=== PATIENT | female | born 1955 | race African-American/Black ===

== ENCOUNTER 2018-10-04 14:30 | Inpatient (IN) ==
[2018-10-04] MEDS ORDERED: SUFentanil 250 MCG/5 ML AMP ONE (15:07)
[2018-10-04] MEDS ORDERED: VANCOMYCIN 1,000 MG VIAL ONE ×2 (15:09→16:51)
[2018-10-04] MEDS ORDERED: PAPAVERINE 60 MG/2 ML VIAL ONE (15:09)
[2018-10-04] MEDS ORDERED: INSULIN REGULAR 100 UNIT/ML IV PRN (15:11)
[2018-10-04] MEDS ORDERED: MAGNESIUM SULF RIDER 4 GM in PREMIX 1 EACH IV PRN (15:11)
[2018-10-04] MEDS ORDERED: DEXTROSE 50% 25 GM/50 ML SYRINGE IV PRN ×2 (15:11)
[2018-10-04] MEDS ORDERED: MIDAZOLAM 2 MG/2 ML VIAL IV PRN (15:11)
[2018-10-04] MEDS ORDERED: CALCIUM CHLORIDE 1,000 MG/10 ML SYRINGE IV PRN (15:11)
[2018-10-04] MEDS ORDERED: ACETAMINOPHEN 650 MG SUPP RECTAL PRN (15:11)
[2018-10-04] MEDS ORDERED: CHLORHEXIDINE 4% SOLN 118 ML BOTTLE TOP PRN (15:11)
[2018-10-04] MEDS ORDERED: ONDANSETRON 4 MG/2 ML VIAL IV PRN (15:11)
[2018-10-04] MEDS ORDERED: INSULIN REGULAR DRIP 100 ML IV SCH (15:30)
[2018-10-04 16:47] LABS: ABG Base Excess -1.3 MMOL/L (-2.5-2.5); ABG HCO3 23.3 MMOL/L (20-26); ABG Oxygen Saturation 99.8 % (95-100); ABG PCO2 37.8 MM HG (35-48); ABG PH 7.396 (7.35-7.45); ABG TCO2 20.8 MMOL/L (23-27); Glucose Heart Surgery 100 MG/DL (74-106); Hematocrit Heart Surgery 34.2 PERCENT (37-47); Hemoglobin Heart Surgery 11.1 G/DL (12.0-16.0); Potassium Heart/CVR 3.9 MMOL/L (3.5-5.1)
[2018-10-04] MEDS ORDERED: TISSUE ADHESIVE 1 EACH APPLICATOR TOP ONE (16:51)
[2018-10-04 17:51] LABS: Apearance,Urine CLEAR (Clear); Bilirubin,Urine Negative (Negative); Blood, Urine Negative (Negative); Glucose,Urine (UA) Negative (Negative); Ketones,Urine 20 mg/dL (Negative); Nitrite,Urine Negative (Negative); Protein,Urine Negative; RBC,Urine 1 /HPF (0-4); Urine Color Yellow (Yellow); Urine Specific Gravity 1.032 (1.001-1.035); WBC,Urine <1 /HPF (0-6)
[2018-10-04 18:10] LABS: Hematocrit Heart Surgery 19.9 PERCENT (37-47); VBG Base Excess 3.1 MEQ/L (0-4); VBG HCO3 27.3 MEQ/L (24-28); VBG PCO2 13.8 MMHG (41-51); VBG PH 7.799
[2018-10-04] MEDS ORDERED: PHENobarbital 130 MG/1 ML VIAL ONE ×2 (18:10→18:26)
[2018-10-04 18:14] LABS: PCO2 Patient Temp Venous 13.8 MM HG; PH Patient Temp Venous 7.799
[2018-10-04 18:16] LABS: Hemoglobin Heart Surgery 6.3 G/DL (12.0-16.0); Potassium Heart/CVR 6.1 MMOL/L (3.5-5.1)
[2018-10-04 19:07] LABS: PCO2 Patient Temp Venous 53.7 MM HG; PH Patient Temp Venous 7.364; PO2 Patient Temp Venous 57.3 MM HG; Potassium Heart/CVR 5.8 MMOL/L (3.5-5.1); VBG Base Excess 4.7 MEQ/L (0-4); VBG HCO3 28.6 MEQ/L (24-28); VBG Oxygen Saturation 88.5 %; VBG PCO2 53.7 MMHG (41-51); VBG PH 7.364; VBG PO2 57.3 MMHG (17-40)
[2018-10-04 19:10] LABS: Hemoglobin Heart Surgery 5.2 G/DL (12.0-16.0)
[2018-10-04 19:11] LABS: Hematocrit Heart Surgery 16.3 PERCENT (37-47)
[2018-10-04 19:41] LABS: Hematocrit Heart Surgery 23.7 PERCENT (37-47); Hemoglobin Heart Surgery 7.6 G/DL (12.0-16.0); PCO2 Patient Temp Venous 36.8 MM HG; PH Patient Temp Venous 7.501; PO2 Patient Temp Venous 44.9 MM HG; VBG Base Excess 5.3 MEQ/L (0-4); VBG HCO3 29.1 MEQ/L (24-28); VBG Oxygen Saturation 85.8 %; VBG PCO2 36.8 MMHG (41-51); VBG PH 7.501; VBG PO2 44.9 MMHG (17-40)
[2018-10-04 19:43] LABS: Potassium Heart/CVR 6.2 MMOL/L (3.5-5.1)
[2018-10-04 20:12] LABS: Hematocrit Heart Surgery 25.4 PERCENT (37-47); Hemoglobin Heart Surgery 8.1 G/DL (12.0-16.0); PCO2 Patient Temp Venous 36.4 MM HG; PH Patient Temp Venous 7.521; PO2 Patient Temp Venous 40.1 MM HG; VBG Base Excess 6.6 MEQ/L (0-4); VBG HCO3 30.2 MEQ/L (24-28); VBG Oxygen Saturation 82.4 %; VBG PCO2 36.4 MMHG (41-51); VBG PH 7.521; VBG PO2 40.1 MMHG (17-40)
[2018-10-04 20:14] LABS: Potassium Heart/CVR 6.5 MMOL/L (3.5-5.1)
[2018-10-04] MEDS ORDERED: THROMBIN TOPICAL (RECOMBINANT) 5,000 UNIT VIAL TOP ONE (20:32)
[2018-10-04 20:57] LABS: ABG Base Excess 3.9 MMOL/L (-2.5-2.5); ABG Oxygen Saturation 98.7 % (95-100); ABG PCO2 33.4 MM HG (35-48); ABG PH 7.513 (7.35-7.45); ABG TCO2 24.7 MMOL/L (23-27); Glucose Heart Surgery 177 MG/DL (74-106); Hematocrit Heart Surgery 26.8 PERCENT (37-47); Hemoglobin Heart Surgery 8.6 G/DL (12.0-16.0); Ionized Calcium Arterial 1.05 MMOL/L (1.21-1.46); PCO2 Patient Temp Arterial 33.4 MMHG; PH Patient Temp Arterial 7.513; Patient Temperature 37 CELCIUS; Sodium Heart/CVR 140 MMOL/L (135-145)
[2018-10-04 20:59] LABS: Potassium Heart/CVR 6.3 MMOL/L (3.5-5.1)
[2018-10-04] MEDS ORDERED: SODIUM BICARBONATE 50 MEQ/50 ML VIAL IV ONE (21:17)
[2018-10-04] MEDS ORDERED: MANNITOL 100 GM/500 ML BAG IV ONE (21:17)
[2018-10-04] MEDS ORDERED: DEXTROSE 5% KCL 20 MEQ 20 MEQ/1,000 ML BAG IV ONE (21:17)
[2018-10-04] MEDS ORDERED: HEPARIN 10,000 UNIT/10 ML VIAL ONE (21:18)
[2018-10-04] MEDS ORDERED: MAGNESIUM SULFATE 10 GM/20 ML VIAL IV ONE (21:18)
[2018-10-04] MEDS ORDERED: FUROSEMIDE 20 MG/2 ML VIAL ONE (21:18)
[2018-10-04] MEDS ORDERED: POTASSIUM CHLORIDE 20 MEQ/10 ML VIAL ONE (21:18)
[2018-10-04] MEDS ORDERED: ALBUMIN 25% 25 GM/100 ML VIAL IV ONE (21:18)
[2018-10-04] MEDS ORDERED: PROTAMINE SULFATE 250 MG/25 ML VIAL IV ONE (21:18)
[2018-10-04] MEDS ORDERED: methylPREDNISolone SOD SUC 1,000 MG/8 ML VIAL ONE (21:18)
[2018-10-04] MEDS ORDERED: PHENYLEPHRINE DRIP 40 MG/250 ML PREMIX IV ONE (21:33)
[2018-10-04] MEDS ORDERED: SEVOFLURANE 1 UNIT/15 MINUTE INH ONE (22:09)
[2018-10-04] MEDS ORDERED: CALCIUM CHLORIDE 1,000 MG/10 ML VIAL IV ONE (22:10)
[2018-10-04] MEDS ORDERED: VECURONIUM 10 MG VIAL IV ONE (22:11)
[2018-10-04] MEDS ORDERED: ETOMIDATE 40 MG/20 ML VIAL IV ONE (22:11)
[2018-10-04] MEDS ORDERED: PHENYLEPHRINE 1 MG/10 ML SYRINGE IV ONE (22:11)
[2018-10-04] MEDS ORDERED: MIDAZOLAM 10 MG/2 ML VIAL ONE ×2 (22:11)
[2018-10-04] MEDS ORDERED: PHENYLEPHRINE 10 MG/1 ML VIAL IV ONE (22:11)
[2018-10-04] MEDS ORDERED: NITROGLYCERIN DRIP 50 MG/250 ML BOTTLE IV ONE (22:12)
[2018-10-04] MEDS ORDERED: LACTATED RINGERS 1,000 ML IV ONE (22:12)
[2018-10-04] MEDS ORDERED: SUCCINYLCHOLINE 200 MG/10 ML VIAL ONE (22:12)
[2018-10-04] MEDS ORDERED: PHENYLEPHRINE DRIP 40 MG/250 ML PREMIX IV PRN (22:21)
[2018-10-04 22:22] LABS: Basophils % 0.2 % (0.0-0.8); Eosinophils # 0.2 10*3/uL (0.0-0.87); Eosinophils % 1.2 % (0.00-10.9); Hematocrit 24.6 VOL% (35.7-47.0); Immature Granulocytes Absolute 0.13 #; Lymphocytes % 8.1 % (21.3-54.2); Mean Corpuscular HGB Conc 32.5 GM/DL (32-36); Mean Corpuscular Hemoglobin 29 PG (27-34); Mean Corpuscular Volume 88.8 FL (87-102); Mean Platelet Volume 10.2 FL (9.6-12.0); Monocytes % 7.5 % (1.7-12.7); Neutrophils # 10.5 10*3/uL (1.4-7.4); Platelet Count 171 T/CUMM (130-400); Red Blood Count 2.77 MC/CUMM (3.8-5.5); Red Cell Distribution Width 14.3 % (9.3-17.3); White Blood Count 12.8 T/CUMM (4-12)
[2018-10-04 22:24] LABS: ABG Base Excess 4.5 MMOL/L (-2.5-2.5); ABG HCO3 28.5 MMOL/L (20-26); ABG Oxygen Saturation 99.7 % (95-100); ABG PCO2 34.3 MM HG (35-48); ABG PH 7.513 (7.35-7.45); ABG TCO2 25.4 MMOL/L (23-27); Glucose Heart Surgery 185 MG/DL (74-106); Hematocrit Heart Surgery 26.3 PERCENT (37-47); Hemoglobin Heart Surgery 8.5 G/DL (12.0-16.0); Potassium Heart/CVR 5.4 MMOL/L (3.5-5.1)
[2018-10-04 22:43] LABS: INR 1.1; PT Patient Result 11.8 SECS; Partial Thromboplastin Time 24.9 SECS (0-40)
[2018-10-04 22:51] LABS: Calcium 8.8 MG/DL (8.5-10.1); Osmolality,Calculated 289.7 MOS/KG (273-304); Potassium 5.5 MMOL/L (3.5-5.1)
[2018-10-04] MEDS: SODIUM CHLORIDE 0.45% 1,000 ML IV SCH ×2 (22:55)
[2018-10-04] MEDS: NITROGLYCERIN DRIP 50 MG/250 ML BOTTLE IV PRN (22:56)
[2018-10-04] MEDS: CHLORHEXIDINE 0.12% ORAL RINSE 60 ML BOTTLE SWISH/SPIT SCH (23:27)
[2018-10-04] MEDS: SODIUM CHLORIDE 0.9% 250 ML IV PRN (23:36)
[2018-10-05] MEDS: SODIUM CHLORIDE 0.9% 250 ML IV PRN (01:35)
[2018-10-05 02:28] LABS: ABG Base Excess 0.4 MMOL/L (-2.5-2.5); ABG HCO3 24.8 MMOL/L (20-26); ABG PCO2 40.2 MM HG (35-48); ABG PH 7.404 (7.35-7.45); ABG TCO2 22.9 MMOL/L (23-27); Glucose Heart Surgery 212 MG/DL (74-106); Hemoglobin Heart Surgery 9.7 G/DL (12.0-16.0); Potassium Heart/CVR 4.5 MMOL/L (3.5-5.1)
[2018-10-05] MEDS: VANCOMYCIN INJ 1,000 MG in SODIUM CHLORIDE 0.9% 250 ML IV SCH ×2 (02:45→14:34)
[2018-10-05 04:07] LABS: Basophils % 0.1 % (0.0-0.8); Eosinophils % 0.1 % (0.00-10.9); Hematocrit 28.1 VOL% (35.7-47.0); Hemoglobin 9.1 GM/DL (12.0-16.0); Immature Granulocytes % 1.4 %; Immature Granulocytes Absolute 0.19 #; Lymphocytes # 0.7 10*3/uL (1.4-4.0); Mean Corpuscular HGB Conc 32.4 GM/DL (32-36); Mean Corpuscular Hemoglobin 28 PG (27-34); Mean Corpuscular Volume 86.5 FL (87-102); Monocytes # 0.8 10*3/uL (0.11-0.8); Neutrophils # 11.7 10*3/uL (1.4-7.4); Neutrophils % 87.4 % (38.7-73.9); Platelet Count 157 T/CUMM (130-400); Red Blood Count 3.25 MC/CUMM (3.8-5.5); Red Cell Distribution Width 15.4 % (9.3-17.3); White Blood Count 13.3 T/CUMM (4-12)
[2018-10-05 04:41] LABS: Calcium 7.9 MG/DL (8.5-10.1); Osmolality,Calculated 297.1 MOS/KG (273-304); Potassium 4.9 MMOL/L (3.5-5.1)
[2018-10-05] MEDS: ALBUMIN 5% 12.5 GM in PREMIX 1 EACH IV PRN ×2 (05:32→05:49)
[2018-10-05] MEDS: SODIUM CHLORIDE 0.45% 1,000 ML IV SCH ×5 (05:59→22:09)
[2018-10-05] MEDS: PANTOPRAZOLE 40 MG VIAL IV SCH (08:12)
[2018-10-05] MEDS: CHLORHEXIDINE 0.12% ORAL RINSE 60 ML BOTTLE SWISH/SPIT SCH ×2 (08:16→22:12)
[2018-10-05] MEDS: POTASSIUM CHLORIDE RIDER 10 MEQ in PREMIX 1 EACH IV PRN ×2 (10:58→23:07)
[2018-10-05] MEDS: MAGNESIUM SULF RIDER 2 GM in PREMIX 1 EACH IV PRN (11:15)
[2018-10-05] MEDS: INSULIN REGULAR 100 UNIT/ML SUBCUT SCH ×3 (11:49→20:08)
[2018-10-05 13:14] LABS: ABG Base Excess -0.1 MMOL/L (-2.5-2.5); ABG HCO3 24.3 MMOL/L (20-26); ABG Oxygen Saturation 95.9 % (95-100); ABG PCO2 37.1 MM HG (35-48); ABG PH 7.422 (7.35-7.45); ABG TCO2 22.4 MMOL/L (23-27); Glucose Heart Surgery 135 MG/DL (74-106); Hematocrit Heart Surgery 25.7 PERCENT (37-47); Hemoglobin Heart Surgery 8.3 G/DL (12.0-16.0); Potassium Heart/CVR 4.3 MMOL/L (3.5-5.1)
[2018-10-05] MEDS: FUROSEMIDE 40 MG TABLET PO SCH (14:38)
[2018-10-05] MEDS: ASPIRIN 325 MG TABLET PO SCH (14:38)
[2018-10-05] MEDS ORDERED: SODIUM CHLORIDE 0.9% 1,000 ML IV PRN (16:39)
[2018-10-05] MEDS ORDERED: PROPOFOL 1,000 MG/100 ML BOTTLE IV PRN (17:16)
[2018-10-05] MEDS ORDERED: FUROSEMIDE 40 MG/4 ML VIAL IV ONE (19:00)
[2018-10-05] MEDS: MORPHINE 4 MG/1 ML VIAL IV PRN (20:45)
[2018-10-05 21:44] LABS: ABG Base Excess 1.3 MMOL/L (-2.5-2.5); ABG HCO3 25.6 MMOL/L (20-26); ABG Oxygen Saturation 97.8 % (95-100); ABG PCO2 36.9 MM HG (35-48); ABG PH 7.443 (7.35-7.45); ABG PO2 94.7 MM HG (80-95); ABG TCO2 23.2 MMOL/L (23-27); Glucose Heart Surgery 139 MG/DL (74-106); Hematocrit Heart Surgery 28.2 PERCENT (37-47); Hemoglobin Heart Surgery 9.1 G/DL (12.0-16.0); Potassium Heart/CVR 3.7 MMOL/L (3.5-5.1)
[2018-10-05] MEDS: POTASSIUM CHLORIDE RIDER 20 MEQ in PREMIX 1 EACH IV PRN (22:07)
[2018-10-05] MEDS: ATORVASTATIN 40 MG TABLET PO SCH (22:16)
[2018-10-06] MEDS: MORPHINE 4 MG/1 ML VIAL IV PRN (00:35)
[2018-10-06] MEDS: INSULIN REGULAR 100 UNIT/ML SUBCUT SCH ×6 (00:37→20:16)
[2018-10-06] MEDS: SODIUM CHLORIDE 0.45% 1,000 ML IV SCH ×3 (03:24→07:34)
[2018-10-06] MEDS: VANCOMYCIN INJ 1,000 MG in SODIUM CHLORIDE 0.9% 250 ML IV SCH ×2 (03:38→14:26)
[2018-10-06] MEDS: NITROGLYCERIN DRIP 50 MG/250 ML BOTTLE IV PRN (03:53)
[2018-10-06 04:59] LABS: Basophils % 0.2 % (0.0-0.8); Hematocrit 24.1 VOL% (35.7-47.0); Hemoglobin 7.7 GM/DL (12.0-16.0); Immature Granulocytes % 1.2 %; Immature Granulocytes Absolute 0.21 #; Lymphocytes # 0.9 10*3/uL (1.4-4.0); Lymphocytes % 5.3 % (21.3-54.2); Mean Corpuscular Hemoglobin 28 PG (27-34); Mean Corpuscular Volume 87.6 FL (87-102); Mean Platelet Volume 10.5 FL (9.6-12.0); Monocytes # 1.9 10*3/uL (0.11-0.8); Monocytes % 10.5 % (1.7-12.7); NRBC # 0.02 10*3/uL; Neutrophils # 14.7 10*3/uL (1.4-7.4); Neutrophils % 82.8 % (38.7-73.9); Platelet Count 137 T/CUMM (130-400); Red Blood Count 2.75 MC/CUMM (3.8-5.5); Red Cell Distribution Width 16.5 % (9.3-17.3); White Blood Count 17.7 T/CUMM (4-12)
[2018-10-06 05:34] LABS: Calcium 7.8 MG/DL (8.5-10.1); Osmolality,Calculated 281.3 MOS/KG (273-304); Potassium 4.2 MMOL/L (3.5-5.1)
[2018-10-06] MEDS: POTASSIUM CHLORIDE RIDER 20 MEQ in PREMIX 1 EACH IV PRN (05:45)
[2018-10-06] MEDS: MAGNESIUM SULF RIDER 2 GM in PREMIX 1 EACH IV PRN (05:45)
[2018-10-06 06:09] LABS: ABG Base Excess 2.6 MMOL/L (-2.5-2.5); ABG HCO3 26.7 MMOL/L (20-26); ABG Oxygen Saturation 97.8 % (95-100); ABG PCO2 40.2 MM HG (35-48); ABG PH 7.434 (7.35-7.45); ABG TCO2 25.1 MMOL/L (23-27); Glucose Heart Surgery 153 MG/DL (74-106); Hematocrit Heart Surgery 25.1 PERCENT (37-47); Hemoglobin Heart Surgery 8.1 G/DL (12.0-16.0); Potassium Heart/CVR 4.7 MMOL/L (3.5-5.1)
[2018-10-06] MEDS ORDERED: METOPROLOL TARTRATE 5 MG/5 ML VIAL IV ONE (09:09)
[2018-10-06] MEDS: ASPIRIN 325 MG TABLET PO SCH (09:59)
[2018-10-06] MEDS: CHLORHEXIDINE 0.12% ORAL RINSE 60 ML BOTTLE SWISH/SPIT SCH ×2 (10:00→20:16)
[2018-10-06] MEDS: FUROSEMIDE 40 MG TABLET PO SCH (10:00)
[2018-10-06] MEDS: METOPROLOL TARTRATE 25 MG TABLET PO SCH ×2 (10:00→20:16)
[2018-10-06] MEDS: PANTOPRAZOLE 40 MG VIAL IV SCH (10:00)
[2018-10-06] MEDS: MORPHINE 10 MG/1 ML VIAL IV PRN ×2 (20:00→22:10)
[2018-10-06] MEDS: ATORVASTATIN 40 MG TABLET PO SCH (20:16)
[2018-10-07] MEDS: INSULIN REGULAR 100 UNIT/ML SUBCUT SCH ×6 (00:24→21:16)
[2018-10-07] MEDS: MORPHINE 10 MG/1 ML VIAL IV PRN (00:29)
[2018-10-07 05:38] LABS: Basophils % 0.1 % (0.0-0.8); Hematocrit 24.7 VOL% (35.7-47.0); Hemoglobin 8.1 GM/DL (12.0-16.0); Immature Granulocytes % 0.9 %; Immature Granulocytes Absolute 0.17 #; Lymphocytes # 1.5 10*3/uL (1.4-4.0); Lymphocytes % 7.5 % (21.3-54.2); Mean Corpuscular HGB Conc 32.8 GM/DL (32-36); Mean Corpuscular Hemoglobin 28 PG (27-34); Mean Corpuscular Volume 86.7 FL (87-102); Mean Platelet Volume 10.6 FL (9.6-12.0); Monocytes # 1.5 10*3/uL (0.11-0.8); Monocytes % 7.9 % (1.7-12.7); NRBC # 0.03 10*3/uL; Neutrophils # 16.2 10*3/uL (1.4-7.4); Neutrophils % 83.6 % (38.7-73.9); Platelet Count 188 T/CUMM (130-400); Red Blood Count 2.85 MC/CUMM (3.8-5.5); Red Cell Distribution Width 15.4 % (9.3-17.3); White Blood Count 19.4 T/CUMM (4-12)
[2018-10-07 05:48] LABS: Calcium 8.2 MG/DL (8.5-10.1); Potassium 4.4 MMOL/L (3.5-5.1)
[2018-10-07] MEDS: PANTOPRAZOLE 40 MG VIAL IV SCH (09:41)
[2018-10-07] MEDS: METOPROLOL TARTRATE 25 MG TABLET PO SCH ×2 (09:42→22:07)
[2018-10-07] MEDS: ASPIRIN 325 MG TABLET PO SCH (09:42)
[2018-10-07] MEDS: FUROSEMIDE 40 MG TABLET PO SCH (09:42)
[2018-10-07] MEDS: CHLORHEXIDINE 0.12% ORAL RINSE 60 ML BOTTLE SWISH/SPIT SCH ×2 (09:42→22:07)
[2018-10-07] MEDS ORDERED: SODIUM CHLORIDE 0.9% 1,000 ML IV PRN ×2 (10:42→11:30)
[2018-10-07 12:20] LABS: ABG Base Excess 3.5 MMOL/L (-2.5-2.5); ABG HCO3 26.6 MMOL/L (20-26); ABG PCO2 34.3 MM HG (35-48); ABG PH 7.508 (7.35-7.45); ABG PO2 94.3 MM HG (80-95); ABG TCO2 27.7 MMOL/L (23-27)
[2018-10-07] MEDS ORDERED: KETOROLAC 15 MG/1 ML VIAL IV ONE (16:24)
[2018-10-07 21:36] LABS: Hematocrit 29.4 VOL% (35.7-47.0); Hemoglobin 9.4 GM/DL (12.0-16.0)
[2018-10-07] MEDS: ATORVASTATIN 40 MG TABLET PO SCH (22:07)
[2018-10-08] MEDS: INSULIN REGULAR 100 UNIT/ML SUBCUT SCH ×3 (01:29→08:00)
[2018-10-08 04:33] LABS: Basophils # 0.1 10*3/uL (0.0-0.2); Basophils % 0.3 % (0.0-0.8); Eosinophils % 0.2 % (0.00-10.9); Hematocrit 30.8 VOL% (35.7-47.0); Hemoglobin 9.7 GM/DL (12.0-16.0); Immature Granulocytes % 1.8 %; Immature Granulocytes Absolute 0.34 #; Lymphocytes # 1.4 10*3/uL (1.4-4.0); Lymphocytes % 7.1 % (21.3-54.2); Mean Corpuscular HGB Conc 31.5 GM/DL (32-36); Mean Corpuscular Hemoglobin 28 PG (27-34); Mean Corpuscular Volume 89.8 FL (87-102); Monocytes # 1.6 10*3/uL (0.11-0.8); Monocytes % 8.1 % (1.7-12.7); NRBC # 0.04 10*3/uL; Neutrophils # 15.8 10*3/uL (1.4-7.4); Neutrophils % 82.5 % (38.7-73.9); Platelet Count 231 T/CUMM (130-400); Red Blood Count 3.43 MC/CUMM (3.8-5.5); Red Cell Distribution Width 14.6 % (9.3-17.3); White Blood Count 19.1 T/CUMM (4-12)
[2018-10-08 05:33] LABS: Calcium 8.4 MG/DL (8.5-10.1); Osmolality,Calculated 273.8 MOS/KG (273-304); Potassium 4.3 MMOL/L (3.5-5.1)
[2018-10-08] MEDS: FUROSEMIDE 40 MG TABLET PO SCH (09:10)
[2018-10-08] MEDS: METOPROLOL TARTRATE 25 MG TABLET PO SCH ×2 (09:10→20:18)
[2018-10-08] MEDS: PANTOPRAZOLE 40 MG VIAL IV SCH (09:10)
[2018-10-08] MEDS: ASPIRIN 325 MG TABLET PO SCH (09:10)
[2018-10-08] MEDS: CHLORHEXIDINE 0.12% ORAL RINSE 60 ML BOTTLE SWISH/SPIT SCH ×2 (09:15→20:19)
[2018-10-08] MEDS: MORPHINE 4 MG/1 ML VIAL IV PRN (18:25)
[2018-10-08] MEDS: ATORVASTATIN 40 MG TABLET PO SCH (20:18)
[2018-10-08] MEDS: MORPHINE 10 MG/1 ML VIAL IV PRN ×2 (20:19→23:30)
[2018-10-09] MEDS: MORPHINE 10 MG/1 ML VIAL IV PRN (03:34)
[2018-10-09 03:53] LABS: Basophils % 0.2 % (0.0-0.8); Eosinophils # 0.2 10*3/uL (0.0-0.87); Eosinophils % 1.3 % (0.00-10.9); Hematocrit 27.3 VOL% (35.7-47.0); Hemoglobin 8.7 GM/DL (12.0-16.0); Immature Granulocytes % 2.3 %; Immature Granulocytes Absolute 0.37 #; Lymphocytes # 1.6 10*3/uL (1.4-4.0); Lymphocytes % 10.4 % (21.3-54.2); Mean Corpuscular HGB Conc 31.9 GM/DL (32-36); Mean Corpuscular Hemoglobin 28 PG (27-34); Mean Corpuscular Volume 88.9 FL (87-102); Mean Platelet Volume 9.7 FL (9.6-12.0); Monocytes # 1.6 10*3/uL (0.11-0.8); Monocytes % 9.9 % (1.7-12.7); Neutrophils % 75.9 % (38.7-73.9); Platelet Count 282 T/CUMM (130-400); Red Blood Count 3.07 MC/CUMM (3.8-5.5); Red Cell Distribution Width 14.5 % (9.3-17.3); White Blood Count 15.8 T/CUMM (4-12)
[2018-10-09 04:08] LABS: Calcium 8.2 MG/DL (8.5-10.1); Osmolality,Calculated 272.8 MOS/KG (273-304); Potassium 4.2 MMOL/L (3.5-5.1)
[2018-10-09] MEDS: METOPROLOL TARTRATE 25 MG TABLET PO SCH ×2 (09:21→20:40)
[2018-10-09] MEDS: CHLORHEXIDINE 0.12% ORAL RINSE 60 ML BOTTLE SWISH/SPIT SCH ×2 (09:21→21:18)
[2018-10-09] MEDS: PANTOPRAZOLE 40 MG VIAL IV SCH (09:22)
[2018-10-09] MEDS: ASPIRIN 325 MG TABLET PO SCH (09:22)
[2018-10-09] MEDS: FUROSEMIDE 40 MG TABLET PO SCH (09:22)
[2018-10-09] MEDS: ATORVASTATIN 40 MG TABLET PO SCH (20:40)
[2018-10-09] MEDS: diphenhydrAMINE CAP 50 MG CAPSULE PO PRN (21:18)
[2018-10-10 05:31] LABS: Basophils % 0.2 % (0.0-0.8); Eosinophils # 0.3 10*3/uL (0.0-0.87); Eosinophils % 2.2 % (0.00-10.9); Hemoglobin 8.8 GM/DL (12.0-16.0); Immature Granulocytes % 3.8 %; Immature Granulocytes Absolute 0.53 #; Lymphocytes # 2.1 10*3/uL (1.4-4.0); Lymphocytes % 14.8 % (21.3-54.2); Mean Corpuscular HGB Conc 31.4 GM/DL (32-36); Mean Corpuscular Hemoglobin 29 PG (27-34); Mean Corpuscular Volume 90.9 FL (87-102); Mean Platelet Volume 11.1 FL (9.6-12.0); Monocytes # 1.3 10*3/uL (0.11-0.8); Monocytes % 9.7 % (1.7-12.7); Neutrophils # 9.6 10*3/uL (1.4-7.4); Neutrophils % 69.3 % (38.7-73.9); Platelet Count 220 T/CUMM (130-400); Red Blood Count 3.08 MC/CUMM (3.8-5.5); Red Cell Distribution Width 14.4 % (9.3-17.3); White Blood Count 13.9 T/CUMM (4-12)
[2018-10-10 05:35] LABS: Calcium 8.5 MG/DL (8.5-10.1); Osmolality,Calculated 277.4 MOS/KG (273-304); Potassium 3.7 MMOL/L (3.5-5.1)
[2018-10-10 06:03] LABS: Band Neutrophils 2 % (0-10); Eosinophils 1 % (0-10); Lymphocytes 13 % (20-55); Metamyelocytes 1 %; Platelet Estimate Normal; Segmented Neutrophils 74 % (50-85); Total Cells Counted 100
[2018-10-10] MEDS: PANTOPRAZOLE 40 MG VIAL IV SCH (09:02)
[2018-10-10] MEDS: ASPIRIN 325 MG TABLET PO SCH (09:06)
[2018-10-10] MEDS: METOPROLOL TARTRATE 25 MG TABLET PO SCH ×2 (09:06→21:17)
[2018-10-10] MEDS: FUROSEMIDE 40 MG TABLET PO SCH (09:06)
[2018-10-10] MEDS: CHLORHEXIDINE 0.12% ORAL RINSE 60 ML BOTTLE SWISH/SPIT SCH ×2 (09:07→21:18)
[2018-10-10] MEDS: diphenhydrAMINE CAP 50 MG CAPSULE PO PRN (21:17)
[2018-10-10] MEDS: ATORVASTATIN 40 MG TABLET PO SCH (21:17)
[2018-10-11 05:39] LABS: Basophils # 0.1 10*3/uL (0.0-0.2); Basophils % 0.4 % (0.0-0.8); Eosinophils # 0.4 10*3/uL (0.0-0.87); Eosinophils % 2.3 % (0.00-10.9); Hematocrit 27.2 VOL% (35.7-47.0); Hemoglobin 8.4 GM/DL (12.0-16.0); Immature Granulocytes % 4.9 %; Immature Granulocytes Absolute 0.77 #; Lymphocytes # 1.8 10*3/uL (1.4-4.0); Lymphocytes % 11.6 % (21.3-54.2); Mean Corpuscular HGB Conc 30.9 GM/DL (32-36); Mean Corpuscular Hemoglobin 28 PG (27-34); Mean Corpuscular Volume 90.4 FL (87-102); Monocytes # 1.6 10*3/uL (0.11-0.8); Monocytes % 10.1 % (1.7-12.7); Neutrophils # 11.1 10*3/uL (1.4-7.4); Neutrophils % 70.7 % (38.7-73.9); Platelet Count 394 T/CUMM (130-400); Red Blood Count 3.01 MC/CUMM (3.8-5.5); Red Cell Distribution Width 14.1 % (9.3-17.3); White Blood Count 15.8 T/CUMM (4-12)
[2018-10-11 06:04] LABS: Calcium 8.5 MG/DL (8.5-10.1); Osmolality,Calculated 276.5 MOS/KG (273-304); Potassium 3.7 MMOL/L (3.5-5.1)
[2018-10-11 06:14] LABS: Band Neutrophils 1 % (0-10); Eosinophils 2 % (0-10); Hypochromasia 2+; Lymphocytes 12 % (20-55); Metamyelocytes 1 %; Ovalocytes 1+; Platelet Estimate Normal; Segmented Neutrophils 72 % (50-85); Total Cells Counted 100
[2018-10-11] MEDS: POTASSIUM CHLORIDE RIDER 10 MEQ in PREMIX 1 EACH IV PRN ×3 (07:52→09:54)
[2018-10-11] MEDS: PANTOPRAZOLE 40 MG VIAL IV SCH (09:21)
[2018-10-11] MEDS: ASPIRIN 325 MG TABLET PO SCH (09:21)
[2018-10-11] MEDS: METOPROLOL TARTRATE 25 MG TABLET PO SCH ×2 (09:21→21:46)
[2018-10-11] MEDS: CHLORHEXIDINE 0.12% ORAL RINSE 60 ML BOTTLE SWISH/SPIT SCH ×2 (09:21→22:53)
[2018-10-11] MEDS: FUROSEMIDE 40 MG TABLET PO SCH (09:21)
[2018-10-11] MEDS: diphenhydrAMINE CAP 50 MG CAPSULE PO PRN (21:45)
[2018-10-11] MEDS: ATORVASTATIN 40 MG TABLET PO SCH (21:46)
[2018-10-12 05:16] LABS: Basophils % 0.3 % (0.0-0.8); Eosinophils # 0.5 10*3/uL (0.0-0.87); Hemoglobin 8.5 GM/DL (12.0-16.0); Immature Granulocytes % 5.3 %; Immature Granulocytes Absolute 0.83 #; Lymphocytes % 12.5 % (21.3-54.2); Mean Corpuscular HGB Conc 31.5 GM/DL (32-36); Mean Corpuscular Hemoglobin 28 PG (27-34); Mean Corpuscular Volume 90.3 FL (87-102); Mean Platelet Volume 9.4 FL (9.6-12.0); Monocytes # 1.5 10*3/uL (0.11-0.8); Monocytes % 9.3 % (1.7-12.7); Neutrophils % 69.6 % (38.7-73.9); Platelet Count 451 T/CUMM (130-400); Red Blood Count 2.99 MC/CUMM (3.8-5.5); Red Cell Distribution Width 14.2 % (9.3-17.3); White Blood Count 15.8 T/CUMM (4-12)
[2018-10-12 05:22] LABS: Calcium 8.5 MG/DL (8.5-10.1); Osmolality,Calculated 274.7 MOS/KG (273-304); Potassium 4.1 MMOL/L (3.5-5.1)
[2018-10-12 05:56] LABS: Eosinophils 3 % (0-10); Hypochromasia Slight; Lymphocytes 10 % (20-55); Platelet Estimate Normal; Segmented Neutrophils 82 % (50-85); Total Cells Counted 100
[2018-10-12] MEDS: FUROSEMIDE 40 MG TABLET PO SCH (09:26)
[2018-10-12] MEDS: METOPROLOL TARTRATE 25 MG TABLET PO SCH ×2 (09:26→21:12)
[2018-10-12] MEDS: CHLORHEXIDINE 0.12% ORAL RINSE 60 ML BOTTLE SWISH/SPIT SCH ×2 (09:26→21:12)
[2018-10-12] MEDS: ASPIRIN 325 MG TABLET PO SCH (09:26)
[2018-10-12] MEDS: PANTOPRAZOLE 40 MG VIAL IV SCH (09:26)
[2018-10-12] MEDS: ATORVASTATIN 40 MG TABLET PO SCH (21:12)
[2018-10-13 05:26] LABS: Basophils # 0.1 10*3/uL (0.0-0.2); Basophils % 0.3 % (0.0-0.8); Eosinophils # 0.5 10*3/uL (0.0-0.87); Eosinophils % 2.9 % (0.00-10.9); Hematocrit 26.4 VOL% (35.7-47.0); Hemoglobin 8.1 GM/DL (12.0-16.0); Immature Granulocytes % 5.1 %; Immature Granulocytes Absolute 0.82 #; Lymphocytes # 1.8 10*3/uL (1.4-4.0); Lymphocytes % 11.1 % (21.3-54.2); Mean Corpuscular HGB Conc 30.7 GM/DL (32-36); Mean Corpuscular Hemoglobin 28 PG (27-34); Mean Corpuscular Volume 90.7 FL (87-102); Mean Platelet Volume 10.5 FL (9.6-12.0); Monocytes # 1.5 10*3/uL (0.11-0.8); Monocytes % 9.6 % (1.7-12.7); Neutrophils # 11.3 10*3/uL (1.4-7.4); Platelet Count 382 T/CUMM (130-400); Red Blood Count 2.91 MC/CUMM (3.8-5.5); Red Cell Distribution Width 14.3 % (9.3-17.3)
[2018-10-13 05:44] LABS: Calcium 8.6 MG/DL (8.5-10.1); Osmolality,Calculated 272.7 MOS/KG (273-304); Potassium 3.8 MMOL/L (3.5-5.1)
[2018-10-13 06:08] LABS: Band Neutrophils 1 % (0-10); Eosinophils 4 % (0-10); Lymphocytes 11 % (20-55); Segmented Neutrophils 78 % (50-85); Total Cells Counted 100
[2018-10-13 06:10] LABS: Hypochromasia 1+; Ovalocytes 1+; Platelet Estimate Normal
[2018-10-13] MEDS: PANTOPRAZOLE 40 MG VIAL IV SCH (08:30)
[2018-10-13] MEDS: ASPIRIN 325 MG TABLET PO SCH (08:31)
[2018-10-13] MEDS: POTASSIUM CHLORIDE RIDER 20 MEQ in PREMIX 1 EACH IV PRN (08:31)
[2018-10-13] MEDS: METOPROLOL TARTRATE 25 MG TABLET PO SCH ×2 (08:31→20:28)
[2018-10-13] MEDS: FUROSEMIDE 40 MG TABLET PO SCH (08:31)
[2018-10-13] MEDS: CHLORHEXIDINE 0.12% ORAL RINSE 60 ML BOTTLE SWISH/SPIT SCH ×2 (08:31→20:27)
[2018-10-13] MEDS: POTASSIUM CHLORIDE RIDER 10 MEQ in PREMIX 1 EACH IV PRN (10:38)
[2018-10-13 14:06] LABS: Apearance,Urine CLEAR (Clear); Bacteria,Urine Occasional /HPF (Few); Bilirubin,Urine Negative (Negative); Blood, Urine Small mg/dL (Negative); Glucose,Urine (UA) Negative (Negative); Hyaline Casts,Urine 1 /LPF (0-3); Ketones,Urine Negative (Negative); Mucus,Urine Occasional /LPF (Occasional); Nitrite,Urine Negative (Negative); Protein,Urine Negative; RBC,Urine 1 /HPF (0-4); Squamous Epithelial Cell,Urine Occasional /HPF (0-10); Urine Color Straw (Yellow); Urine Specific Gravity 1.006 (1.001-1.035); Urine Urobilinogen < 2.0 EU/DL (0.2-1.0); WBC,Urine 2 /HPF (0-6)
[2018-10-13] MEDS: diphenhydrAMINE CAP 50 MG CAPSULE PO PRN (20:28)
[2018-10-13] MEDS: ATORVASTATIN 40 MG TABLET PO SCH (20:28)
[2018-10-14] MEDS: PANTOPRAZOLE 40 MG VIAL IV SCH (08:50)
[2018-10-14] MEDS: FUROSEMIDE 40 MG TABLET PO SCH (08:54)
[2018-10-14] MEDS: METOPROLOL TARTRATE 25 MG TABLET PO SCH ×2 (08:54→21:20)
[2018-10-14] MEDS: ASPIRIN 325 MG TABLET PO SCH (08:54)
[2018-10-14] MEDS: CHLORHEXIDINE 0.12% ORAL RINSE 60 ML BOTTLE SWISH/SPIT SCH ×2 (08:58→21:20)
[2018-10-14 09:45] LABS: Basophils % 0.3 % (0.0-0.8); Eosinophils # 0.4 10*3/uL (0.0-0.87); Eosinophils % 3.1 % (0.00-10.9); Hematocrit 26.1 VOL% (35.7-47.0); Immature Granulocytes % 3.3 %; Immature Granulocytes Absolute 0.43 #; Lymphocytes # 1.5 10*3/uL (1.4-4.0); Lymphocytes % 11.6 % (21.3-54.2); Mean Corpuscular HGB Conc 30.7 GM/DL (32-36); Mean Corpuscular Hemoglobin 28 PG (27-34); Mean Corpuscular Volume 91.6 FL (87-102); Mean Platelet Volume 8.6 FL (9.6-12.0); Monocytes # 1.4 10*3/uL (0.11-0.8); Monocytes % 10.6 % (1.7-12.7); Neutrophils # 9.2 10*3/uL (1.4-7.4); Neutrophils % 71.1 % (38.7-73.9); Platelet Count 450 T/CUMM (130-400); Red Blood Count 2.85 MC/CUMM (3.8-5.5); Red Cell Distribution Width 14.1 % (9.3-17.3)
[2018-10-14] MEDS: ATORVASTATIN 40 MG TABLET PO SCH (21:20)
[2018-10-15] MEDS: METOPROLOL TARTRATE 25 MG TABLET PO SCH (09:46)
[2018-10-15] MEDS: ASPIRIN 325 MG TABLET PO SCH (09:46)
[2018-10-15] MEDS: CHLORHEXIDINE 0.12% ORAL RINSE 60 ML BOTTLE SWISH/SPIT SCH (09:47)
[2018-10-15] MEDS: PANTOPRAZOLE 40 MG VIAL IV SCH (09:47)
[2018-10-15] MEDS: FUROSEMIDE 40 MG TABLET PO SCH (09:47)
[2018-10-15 12:50] VITALS: BP 119/70
== END 2018-10-15 13:59 | disposition home health service (06) | DRG 220 ==
LOC: N.CVR 15:37 → N.ICU 10-06 11:53 → N.TELES 10-09 13:29
PROVIDERS: ADMIT Thoracic Surgery (Cardiothoracic Vascular Surgery); ATTEND Thoracic Surgery (Cardiothoracic Vascular Surgery)

== ENCOUNTER 2021-09-06 17:47 | Observation (INO) ==
[2021-09-06] MEDS ORDERED: ASPIRIN 325 MG TABLET PO STA (18:53)
[2021-09-06] MEDS ORDERED: NITROGLYCERIN SL 0.4 MG TABLET SL ONE (18:53)
[2021-09-06] MEDS: NITROGLYCERIN SL 0.4 MG TABLET SL PRN ×2 (19:00→19:05)
[2021-09-06 19:19] LABS: Basophils % 0.6 % (0.0-0.8); Eosinophils # 0.4 10*3/uL (0.0-0.87); Eosinophils % 5.2 % (0.00-10.9); Hematocrit 36.9 VOL% (35.7-47.0); Hemoglobin 11.9 GM/DL (12.0-16.0); Immature Granulocytes % 0.3 %; Immature Granulocytes Absolute 0.02 #; Mean Corpuscular HGB Conc 32.2 GM/DL (32-36); Mean Corpuscular Volume 89.8 FL (87-102); Mean Platelet Volume 10.1 FL (9.6-12.0); Monocytes % 6.7 % (1.7-12.7); Neutrophils % 57.2 % (38.7-73.9); Platelet Count 295 T/CUMM (130-400); Red Blood Count 4.11 MC/CUMM (3.8-5.5); Red Cell Distribution Width 13.9 % (9.3-17.3); White Blood Count 6.8 T/CUMM (4-12)
[2021-09-06 19:39] LABS: Albumin 3.9 G/DL (3.4-5.0); Bilirubin,Total 0.6 MG/DL (0.20-1.00); Calcium 9.7 MG/DL (8.5-10.1); Osmolality,Calculated 277.4 MOS/KG (273-304); Potassium 4.1 MMOL/L (3.5-5.1); Total Protein 7.7 G/DL (6.4-8.2)
[2021-09-07] MEDS ORDERED: NICOTINE 21 MG/24 HR PATCH TRANSDERM PRN (00:03)
[2021-09-07] MEDS ORDERED: ONDANSETRON 4 MG/2 ML VIAL IV PRN (00:03)
[2021-09-07] MEDS ORDERED: DEXTROSE 10% 250 ML BAG IV PRN (00:03)
[2021-09-07] MEDS ORDERED: BISACODYL 5 MG TABLET PO PRN (00:03)
[2021-09-07] MEDS ORDERED: hydrALAZINE 20 MG/1 ML VIAL IV PRN (00:03)
[2021-09-07] MEDS ORDERED: diphenhydrAMINE CAP 25 MG CAPSULE PO PRN (00:03)
[2021-09-07] MEDS ORDERED: ACETAMINOPHEN 325 MG TABLET PO PRN (00:03)
[2021-09-07] MEDS ORDERED: guaiFENesin/DM ER 600-30 MG TABLET PO PRN (00:03)
[2021-09-07] MEDS ORDERED: GLUCAGON 1 MG VIAL IM PRN (00:03)
[2021-09-07 04:19] LABS: Basophils % 0.4 % (0.0-0.8); Eosinophils # 0.4 10*3/uL (0.0-0.87); Eosinophils % 5.4 % (0.00-10.9); Hematocrit 32.1 VOL% (35.7-47.0); Hemoglobin 10.5 GM/DL (12.0-16.0); Immature Granulocytes % 0.4 %; Immature Granulocytes Absolute 0.03 #; Lymphocytes # 2.1 10*3/uL (1.4-4.0); Lymphocytes % 30.3 % (21.3-54.2); Mean Corpuscular HGB Conc 32.7 GM/DL (32-36); Mean Corpuscular Volume 88.2 FL (87-102); Mean Platelet Volume 9.9 FL (9.6-12.0); Monocytes % 7.6 % (1.7-12.7); Neutrophils % 55.9 % (38.7-73.9); Platelet Count 255 T/CUMM (130-400); Red Blood Count 3.64 MC/CUMM (3.8-5.5); Red Cell Distribution Width 13.9 % (9.3-17.3); White Blood Count 6.9 T/CUMM (4-12)
[2021-09-07 04:48] LABS: Calcium 8.7 MG/DL (8.5-10.1); Osmolality,Calculated 275.5 MOS/KG (273-304); Potassium 3.5 MMOL/L (3.5-5.1)
[2021-09-07] MEDS: PANTOPRAZOLE 40 MG TABLET PO SCH (08:28)
[2021-09-07] MEDS ORDERED: ALBUTEROL 2.5 MG/3 ML NEB RESP TX PRN (10:06)
[2021-09-07] MEDS: METOPROLOL TARTRATE 25 MG TABLET PO SCH ×2 (11:00→21:20)
[2021-09-07] MEDS: ASPIRIN EC 81 MG TABLET PO SCH (11:00)
[2021-09-07] MEDS ORDERED: ATORVASTATIN 40 MG TABLET PO SCH (21:00)
[2021-09-08 08:15] VITALS: BP 130/73
[2021-09-08] MEDS: PANTOPRAZOLE 40 MG TABLET PO SCH (08:34)
[2021-09-08] MEDS: ASPIRIN EC 81 MG TABLET PO SCH (08:34)
[2021-09-08] MEDS: METOPROLOL TARTRATE 25 MG TABLET PO SCH (08:34)
== END 2021-09-08 10:15 | disposition home or self-care (01) ==
LOC: N.ED 17:47 → N.EDINP 17:47 → SUATTDRO 09-07 00:03 → N.5E 09-07 06:29
PROVIDERS: ADMIT Internal Medicine; ATTEND Internal Medicine